=== PATIENT | male | born 1975 | race Hispanic/Latino ===

== ENCOUNTER 2016-12-13 07:16 | Outpatient (CLI) | payer BC ==
--- NOTE | 2016-12-13 08:25 | Ultrasound Report ---
RIGHT UPPER QUADRANT ULTRASOUND: HISTORY: Right upper quadrant pain. Technique: Transabdominal ultrasound imaging with Doppler interrogation. FINDINGS: Many of the images are limited secondary to patient body habitus and bowel gas. Most of the liver is obscured. The visualized liver parenchyma is echogenic consistent with moderate to severe fatty infiltration. No obvious liver lesion is detected. The gallbladder is sonolucent with no evidence of stones, polyps or wall thickening. The common duct is not identified. The pancreas is obscured. The right kidney measures 14 cm. No renal abnormality or hydronephrosis is appreciated. The proximal aorta is normal measuring 2.4 cm. No perihepatic ascites is visualized. IMPRESSION: Limited exam. Moderate to severe fatty infiltration of the liver is suspected. No obvious biliary abnormality. The pancreas is obscured.
== END 2016-12-13 07:17 | disposition home or self-care (01) ==
LOC: US 07:16
PROVIDERS: ATTEND Family Medicine
DX: R10.11 Right upper quadrant pain (principal); R11.0 Nausea
CPT/HCPCS: 76705